=== PATIENT | male | born 1995 | race African-American/Black ===

== ENCOUNTER 2017-12-26 18:10 | Emergency (ER) | payer OTHER | END 2017-12-26 19:52 | disposition home or self-care (01) | LOC: M ED 18:10 | DX: F32.9 Major depressive disorder, single episode, unspecified (principal) | CPT/HCPCS: 99284 ==

== ENCOUNTER → 2020-01-14 | Outpatient (CLI) | payer OTHER ==
--- NOTE | 2020-01-19 15:07 | ECHO ---
DATE OF PROCEDURE: 01/14/2020 Age: 24 Gender: Male Height: 75 inches Weight: 260 pounds Body surface area: 2.46 m2 PATIENT LOCATION: Outpatient. REFERRING PHYSICIAN: Kavon Mcgovern MD INDICATION: Chest pain. MEASUREMENTS: 2D Measurements: RV 4.1 cm LV 4.6 cm Septum 1.1 cm Posterior wall 1.0 cm Aortic Root 3.1 cm LA 3.5 cm LVEF 65% Doppler Measurements: AV 1.06 msec LVOT 1.02 msec LVOT diameter 1.8 cm MV-E 58, A 69, E/A ratio 0.8 Early mitral deceleration time 130 msec E prime medial 8.6, A prime medial 7, E prime lateral 11.6 Average E/E prime ratio 5.7/PCWP - 9 mmHg PV 0.7 msec Pulmonary artery acceleration time 123 msec PASP 28 mmHg IVC 1.3 cm COMMENTS: Normal sinus rhythm without intraventricular conduction disturbance. M-mode and two-dimensional echocardiography was performed with pulse, continuous wave, color flow, and tissue Doppler studies. Normal left ventricular size, wall thickness, and wall motion. Normal left atrial size and Doppler assessment of left ventricular (LV) diastolic function and estimated mean left atrial pressure. Normal right heart chamber sizes and motion and estimated pulmonary arterial pressure. Normal inferior vena cava (IVC) size and collapse against an elevated central venous pressure. Normal aortic dimensions. Normal appearing aortic valve and function. Normal appearing mitral valve with normal leaflet excursion and no posterior systolic buckling and only trace regurgitation (physiologic). Normal appearing tricuspid valve with trace insufficiency (physiologic). No apparent intracardiac mass or pericardial effusion. Unable to detect any structural or functional cardiac abnormality to account for the patients chest discomfort. [facility]
== END ==
LOC: M CARPUL 09:19
PROVIDERS: ATTEND Internal Medicine
DX: R07.9 Chest pain, unspecified (principal)

== ENCOUNTER → 2020-05-16 | Outpatient (REF) | payer OTHER | LOC: M WUC 19:37 | PROVIDERS: ATTEND Physician Assistant | DX: N30.01 Acute cystitis with hematuria (principal) ==

== ENCOUNTER 2021-02-14 10:04 | Day surgery (SDC) | payer OTHER ==
[~2021-02-14] VITALS: Ht 190.5 cm; Wt 115.7 kg
[~2021-02-14 10:04] MED LIST: MELO15TA28 PO; NS 1,000 ML IV ONE; PROS5TAB PO; VERA80TA3 PO
== END 2021-02-14 11:05 | disposition home or self-care (01) ==
LOC: M OPP 10:04
PROVIDERS: ATTEND Internal Medicine Gastroenterology
DX: K62.5 Hemorrhage of anus and rectum (principal); Z53.8 Procedure and treatment not carried out for other reasons